=== PATIENT | female | born 2005 | race Caucasian/White ===

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

== ENCOUNTER 2024-02-21 13:44 | Outpatient (NON) | payer OTHER, SELFPAY ==
[2024-02-21 13:59] LABS: Bilirubin Urine Negative (Negative); Blood Urine Negative (Negative); Color Urine Light Yellow (Yellow); Glucose Urine UA Negative (Negative); Ketones Urine Negative (Negative); Leukocyte Esterase Ur 1+ LEU/UL (Negative); Nitrate Urine Negative (Negative); Protein Urine Negative (Negative); Specific Grav Ur 1.015 (1.010-1.020); Urobilinogen Urine 0.2 mg/dL (0.2-1.0)
[2024-02-21 16:01] LABS: Add Urine Microscopic? YES; Appearance Urine Cloudy (Clear); Bacteria Urine 4+ /hpf; RBC Urine None seen /hpf (0-2); Squamous Epithelial Cell Urine Few /hpf (Few)
== END 2024-02-21 13:45 | disposition home or self-care (01) ==
LOC: CHSLAB 13:46
PROVIDERS: Visit Provider Nurse Practitioner Family
DX: Z87.898 Personal history of other specified conditions (principal)
CPT/HCPCS: 81001; 87077; 87086; 87088; 87186

== ENCOUNTER 2024-02-24 13:04 | Emergency (ER) | payer OTHER, SELFPAY ==
--- NOTE | ~2024-02-24 | CT_ITS ---
EXAMINATION: CT abdomen pelvis w con DATE: 02/24/2024 14:29 INDICATION: Low back pain and pelvic pain. Recurrent urinary tract infection. TECHNIQUE: Computed tomography (CT) of the abdomen and pelvis was performed with 100 mL Omnipaque-350 intravenous contrast. Automated exposure control and iterative reconstruction technique were employe d. The dose-length product was 591.81 mGy-cm. COMPARISON: 09/09/2023 FINDINGS: Lung bases are clear. Heart size is normal. No pericardial or pleural effusion. Small focus of focal hepatic steatosis at the ligamentum teres. Liver, gallbladder, spleen, pancreas, bilateral adrenal gl ands and kidneys are normal. Bowels including the appendix are normal. Bladder is normal. IUD in expe cted position within the uterus. Tampon within vaginal vault. Multiloculated appearing likely serpigi nous tubular cystic structure extending posterior to the uterus from the left the right adnexa most c onsistent with bilateral hydrosalpinges. Bilateral adnexa are otherwise unremarkable. No free intrape ritoneal gas or fluid. No pathologically enlarged abdominal or pelvic lymphadenopathy. Transitional t horacolumbar segment with bilateral hypoplastic riblets and transitional bilaterally sacralized lumbo sacral segment. IMPRESSION: 1. Complex cystic structure from the left and right adnexal regions and across the cul-de-sac likely representing bilateral hydrosalpinges. Differential would include multiple bilateral ovarian cysts ar e complex septated cysts without discrete nodularity which would favor cystadenoma over cystadenocarc inoma. 2. IUD in expected position. Reviewed, dictated and finalized at location A. IMPRESSION: 1. Complex cystic structure from the left and right adnexal regions and across the cul-de-sac likely representing bilateral hydrosalpinges. Differential would include multiple bilateral ovarian cysts are complex septated cysts without di screte nodularity which would favor cystadenoma over cystadenocarcinoma. 2. IUD in expected position.
[2024-02-24 13:05] VITALS: BP 118/66; PULSE 83; RESP 14; TEMP 36.6; O2SAT 99
--- NOTE | 2024-02-24 13:13 | ECG_ITS ---
SEE SCANNED COPY FOR CONFIRMED REPORT MTDD
[2024-02-24 13:34] LABS: Basophils Absolute Auto 0.03 K/mm3 (0.00-0.10); Basophils Percent Auto 0.5 % (0.0-1.0); Eosinophils Absolute Auto 0.09 K/mm3 (0.02-0.50); Eosinophils Percent Auto 1.4 % (1.0-6.0); Hematocrit 42.7 % (35.0-49.0); Hemoglobin 13.9 g/dL (12.0-15.0); Immature Granulocyte Absolute 0.02 K/mm3 (0.00-0.00); Immature Granulocyte Percent A 0.3 % (0.0-0.0); Lymphocytes Absolute Auto 1.59 K/mm3 (1.10-4.50); Lymphocytes Percent Auto 24.8 % (18.0-42.0); Mean Corpuscular HGB Conc 32.6 g/dL (32-36); Mean Platelet Volume 8.4 fl (9.2-11.8); Monocytes Percent Auto 6.2 % (2.0-11.0); Neutrophils Absolute Auto 4.29 K/mm3 (1.70-7.20); Neutrophils Percent Auto 66.8 % (50.0-70.0); Platelet Count Result 254 K/mm3 (150-420); Red Blood Count 4.64 M/mm3 (4.20-5.40); Red Cell Distribution Width 12.3 % (11.6-14.4); White Blood Count 6.4 K/mm3 (4.8-10.8)
[2024-02-24] MEDS: SODIUM CHLORIDE 0.9% IV 1,000 ML 999 ML IV CONT (13:38)
[2024-02-24] MEDS: KETOROLAC 30 MG/ML VIAL (*BKC) IV PUSH (13:39)
[2024-02-24 13:48] LABS: Partial Thromboplastin Time 27.1 Sec (23.9-30.70); Prothrombin Time 10.9 Seconds (9.50-12.1)
[2024-02-24 13:51] LABS: Appearance Urine Clear (Clear); Bilirubin Urine Negative (Negative); Blood Urine Negative (Negative); Color Urine Yellow (Yellow); Glucose Urine UA Negative (Negative); Ketones Urine Negative (Negative); Leukocyte Esterase Ur Negative LEU/UL (Negative); Nitrate Urine Negative (Negative); Protein Urine Negative (Negative); Specific Grav Ur 1.015 (1.010-1.020); Urobilinogen Urine 0.2 mg/dL (0.2-1.0)
[2024-02-24 13:51] LABS: Pregnancy On Board Control Positive; Urine Pregnancy Test Negative
[2024-02-24 13:55] LABS: Add Urine Microscopic? NO
[2024-02-24 13:59] LABS: Alanine Aminotransferase 22 U/L (14-59); Albumin Level 3.8 g/dL (3.4-5.0); Alkaline Phosphatase 56 U/L (50-130); Anion Gap 8 mmol/L (4-12); Aspartate Amino Transferase 14 U/L (15-37); Bilirubin,Total 0.6 mg/dL (0.00-1.00); Blood Urea Nitrogen 12 mg/dL (7-18); Carbon Dioxide 30 mmol/L (21-32); Chloride 103 mmol/L (98-108); Estimated CRCL calculation 103 ml/min; Estimated Glomerular Filt Rate > 60; Glucose 85 mg/dL (70-99); Lipase 35 U/L (16-77); Osmolality Calculated 290 mOsm/kg (285-295); Potassium 3.8 mmol/L (3.5-5.1); Sodium 141 mmol/L (136-145); Total Protein 7.3 g/dL (6.4-8.2)
[2024-02-24 14:02] LABS: Lactic Acid Reflex 0.7 mmol/L (0.4-2.0)
[2024-02-24 14:14] VITALS: BP 117/63; PULSE 75; RESP 16; TEMP 36.6; O2SAT 99
--- NOTE | 2024-02-24 14:51 | ED.ABDPAIN ---
HPI - Abdominal Pain General Chief Complaint: Abdominal Pain Stated Complaint: vanna flank pain, recent uti, abt Source: patient and family Mode of arrival: ambulatory Limitations: no limitations History of Present Illness HPI narrative: This is a 18 year female who presents with abdominal pain localized to suprapubic area was seen by her primary and was treated for urinary tract infection with symptoms persist currently patient does have an IUD in place there is some flank discomfort with no fever chills no nausea vomiting no dysuria no hematuria no fever chills. MD elicited complaint: abdominal pain Onset (ago): week(s) Pain Consistency: constant Location: suprapubic Severity: moderate Quality: aching Related Data Home Medications Medication Instructions Recorded Confirmed levonorgestrel 21 mcg/24 hr (up to 1 device intrauterine ONCE 12/09/22 02/24/24 8 years) 52 mg intrauterine device (Mirena) Allergies Allergy/AdvReac Type Severity Reaction Status Date / Time No Known Drug Allergies Allergy Mild Unknown Verified 02/24/24 13:10 Review of Systems Review of Systems: All systems reviewed & are unremarkable except as noted in HPI and below PMFSH Past Medical History Medical History Pharyngitis Sjogren's disease TIN (tubulointerstitial nephritis) Surgical History Surgical History History of adenoidectomy History of tonsillectomy Social History Social History Smoking status: Never smoker Alcohol intake: never Substance use: never Substance use type: does not use Lack of Transportation: No Lack of Food: Never True Current Housing: I Have Housing Concerned About Future Housing: No Difficulty Paying Gas/Electric Bills: No Difficulty Paying for Meds: No Currently Unemployed: No Education: High School Diploma/GED Living arrangements: with family Occupation/Education: student Gender identity (if verbalized by the patient): Female Exam Const: General: healthy appearing, no acute distress and alert Neck: Neck: normal visual inspection, no lymphadenopathy and no meningeal signs Chest: Chest palpation & inspection: normal inspection of the chest Resp: Effort & Inspection: normal respiratory effort Auscultation: clear to auscultation bilaterally Cardio: Rate: regular rate Rhythm: regular rhythm GI: GI Palp: Yes Soft to palpation and Yes Tenderness to palpation present (GI) Auscultation: normal bowel sounds : General: Yes Bladder palpation abnormal Urinary Catheter: Urinary Catheter: patent and draining Back/Spine/Pelvis: Back: CVA tenderness Skin: General skin exam: normal color Rashes: no rashes Neuro: General: patient oriented x3 Cranial nerves: Yes Nystagmus not present Extrem: General: normal to inspection Psych: Mental Status: mental status grossly normal Course Course Emergency Course: Patient received bolus of normal saline with 30mg IV Toradol pain level after reassessment has significantly improved labs performed including UA were within normal range normal white blood cell count. CT scan with contrast performed does show has that there is cystic lesions consistent with cyst adenomas and hydrosalpinx. Advised patient to follow-up with her business data analyst as scheduled. Vital Signs Vital signs: Vital Signs Temperature 36.6 C 02/24/24 13:05 Pulse Rate 83 02/24/24 13:05 Respiratory Rate 14 02/24/24 13:05 Blood Pressure 118/66 02/24/24 13:05 Pulse Oximetry 99 02/24/24 13:05 Oxygen Delivery Room Air 02/24/24 13:05 Temperature 36.6 C 02/24/24 14:14 Pulse Rate 75 02/24/24 14:14 Respiratory Rate 16 02/24/24 14:14 Blood Pressure 117/63 02/24/24 14:14 Pulse Oximetry 99 02/24/24 14:14 Oxygen Delivery Room Air 02/24/24 14:14 MDM - Abdomina
[2024-02-24 15:03] VITALS: BP 118/66; PULSE 83; RESP 14; TEMP 36.6; O2SAT 99
== END 2024-02-24 15:03 | disposition home or self-care (01) ==
PROVIDERS: Emergency Provider Emergency Medicine; PCP Nurse Practitioner Family
DX: N83.209 Unspecified ovarian cyst, unspecified side (principal); R10.9 Unspecified abdominal pain; M35.00 Sjogren syndrome, unspecified
CPT/HCPCS: 36415; 74177; 80053; 81003; 81025; 83605; 83690; 85025; 85610; 85730; 93005; 96361; 96374; 99284; J1885; J7030; Q9967

== ENCOUNTER 2024-03-29 11:13 | Outpatient (CLI) | payer OTHER, SELFPAY ==
[2024-03-30 13:32] LABS: CA-125 146 U/mL (<35)
== END 2024-03-29 11:14 | disposition home or self-care (01) ==
PROVIDERS: PCP Nurse Practitioner Family; Visit Provider Nurse Practitioner Obstetrics & Gynecology
DX: N94.89 Other specified conditions associated with female genital organs and menstrual cycle (principal)
CPT/HCPCS: 36415; 80069; 85025; 86304

== ENCOUNTER 2024-03-29 11:17 | Outpatient (CLI) | payer OTHER, SELFPAY ==
[2024-03-29 11:46] LABS: Basophils Absolute Auto 0.1 K/mm3 (0.0-0.1); Basophils Percent Auto 0.8 % (0.2-1.2); Eosinophils Absolute Auto 0.1 K/mm3 (0-0.3); Eosinophils Percent Auto 1.9 % (0-4.4); Hemoglobin 14.6 g/dL (12.0-15.0); Immature Granulocyte Absolute 0.01 K/mm3 (0.00-0.031); Immature Granulocyte Percent A 0.2 % (0-0.5); Lymphocytes Absolute Auto 2.15 K/mm3 (0.9-3.2); Lymphocytes Percent Auto 33.5 % (18.3-44.2); Mean Corpuscular HGB Conc 32.4 g/dl (32-36); Mean Corpuscular Hemoglobin 30.5 pg (26-34); Mean Corpuscular Volume 94.1 fl (80-100); Mean Platelet Volume 8.3 fl (7.4-10.4); Monocytes Absolute Auto 0.4 K/mm3 (0.1-0.6); Monocytes Percent Auto 6.7 % (2.6-8.5); Neutrophils Absolute Auto 3.7 K/mm3 (1.3-6.7); Neutrophils Percent Auto 56.9 % (45.5-73.1); Platelet Count Result 326 k/mm3 (150-375); Red Blood Count 4.78 M/mm3 (4.2-5.4); Red Cell Distribution Width 12.6 % (11.5-14.5); White Blood Count 6.4 K/mm3 (4.5-10.0)
[2024-03-29 11:59] LABS: Anion Gap 8 mmol/L (4-12); Blood Urea Nitrogen 12 mg/dL (8-21); Calcium 9.9 mg/dL (8.9-10.7); Carbon Dioxide 29 mmol/L (22-30); Chloride 105 mmol/L (98-107); Estimated Glomerular Filt Rate > 60; Glucose 70 mg/dL (65-110); Phosphorus 3.9 mg/dL (2.5-4.5); Potassium 4.1 mmol/L (3.4-5.0); Sodium 142 mmol/L (134-143)
== END 2024-03-29 11:18 | disposition home or self-care (01) ==
PROVIDERS: PCP Nurse Practitioner Family
DX: H20.9 Unspecified iridocyclitis (principal); N12 Tubulo-interstitial nephritis, not specified as acute or chronic; M25.50 Pain in unspecified joint
CPT/HCPCS: 36415; 80069; 85025

== ENCOUNTER 2024-03-31 14:28 | Outpatient (CLI) | payer OTHER, SELFPAY ==
--- NOTE | ~2024-03-31 | US_ITS ---
EXAMINATION: US transvaginal DATE: 03/31/2024 15:20 INDICATION: Pelvic pain, right greater than left. Abnormal CT . TECHNIQUE: Multiple transabdominal and endovaginal sonographic images of the pelvis were obtained. COMPARISON: None. FINDINGS: The uterus measures 7.5 x 4.2 x 4.1 cm. The endometrial complex measures 5 mm in thickness. Linear e chogenic and shadowing IUD seen within the endometrial canal. Again seen is a large complex multisept ated cystic structure and in the left and right adnexal regions in the cul-de-sac with thin internal septations and hypoechoic fluid. Normal ovaries are not identified. There is no free fluid in the pel vis. IMPRESSION: 1. Large complex multi septated cystic structure extending grossly cul-de-sac from the left to the ri ght adnexal regions. Normal ovaries are not identified and the differential remains hydrosalpinx is, multiple independent ovarian cysts or complex septated cyst which can be seen with ovarian neoplasm e ither benign or malignant. 2. Normal uterus with IUD in expected position. Reviewed, dictated and finalized at location A. IMPRESSION: 1. Large complex multi septated cystic structure extending grossly cul-de-sac f rom the left to the right adnexal regions. Normal ovaries are not identified an d the differential remains hydrosalpinx is, multiple independent ovarian cysts or complex septated cyst which can be seen with ovarian neoplasm either benign or malignant. 2. Normal uterus with IUD in expected position.
== END 2024-03-31 14:29 | disposition home or self-care (01) ==
LOC: CHSIMG 14:30
PROVIDERS: PCP Nurse Practitioner Family; Visit Provider Nurse Practitioner Obstetrics & Gynecology
DX: N94.89 Other specified conditions associated with female genital organs and menstrual cycle (principal); Z97.5 Presence of (intrauterine) contraceptive device
CPT/HCPCS: 76830

== ENCOUNTER 2024-04-09 00:01 | Emergency (ER) | payer OTHER, SELFPAY ==
[2024-04-09 00:05] VITALS: BP 124/94; PULSE 81; RESP 18; TEMP 36.3; O2SAT 100
== END 2024-04-09 00:10 | disposition left against medical advice (07) ==
LOC: CHSED 00:12
PROVIDERS: Emergency Provider Emergency Medicine; PCP Nurse Practitioner Family
DX: R10.30 Lower abdominal pain, unspecified (principal)
CPT/HCPCS: 99199

== ENCOUNTER 2024-04-14 11:57 | Outpatient (CLI) | payer OTHER, SELFPAY ==
[2024-04-14 12:23] LABS: Hematocrit 42.8 % (35.0-49.0); Hemoglobin 14.5 g/dL (12.0-15.0); Mean Corpuscular HGB Conc 33.9 g/dL (32-36); Mean Corpuscular Hemoglobin 30.8 pg (27.0-31.0); Mean Corpuscular Volume 90.9 fL (78.0-102.0); Mean Platelet Volume 8.4 fl (9.2-11.8); Platelet Count Result 281 K/mm3 (150-420); Red Blood Count 4.71 M/mm3 (4.20-5.40); Red Cell Distribution Width 12.2 % (11.6-14.4); White Blood Count 5.6 K/mm3 (4.8-10.8)
[2024-04-14 12:34] LABS: Hemoglobin A1C 4.9 % (<5.7)
[2024-04-14 13:40] LABS: Alanine Aminotransferase 154 U/L (14-59); Albumin Level 4.2 g/dL (3.4-5.0); Alkaline Phosphatase 57 U/L (50-130); Anion Gap 9 mmol/L (4-12); Aspartate Amino Transferase 106 U/L (15-37); Bilirubin,Total 0.8 mg/dL (0.00-1.00); Blood Urea Nitrogen 9 mg/dL (7-18); Calcium 9.4 mg/dL (8.5-10.1); Carbon Dioxide 26 mmol/L (21-32); Chloride 104 mmol/L (98-108); Cholesterol 140 mg/dL (0-200); Estimated Glomerular Filt Rate > 60; Glucose 74 mg/dL (70-99); HDL Direct 58 mg/dL (40-60); LDL Cholesterol Calculated 76 mg/dL (<130); Osmolality Calculated 285 mOsm/kg (285-295); Potassium 4.1 mmol/L (3.5-5.1); Sodium 139 mmol/L (136-145); Thyroid Stimulating Hormone 2.84 uIU/mL (0.52-4.13); Triglycerides 28 mg/dL (0-150)
== END 2024-04-14 11:58 | disposition home or self-care (01) ==
LOC: CHSLAB 12:00
PROVIDERS: PCP Nurse Practitioner Family
DX: Z79.899 Other long term (current) drug therapy (principal)
CPT/HCPCS: 36415; 80053; 80061; 83036; 84443; 85027

== ENCOUNTER 2024-04-14 15:18 | Emergency (ER) | payer OTHER, SELFPAY ==
[2024-04-14 15:20] VITALS: BP 112/68; PULSE 85; RESP 18; TEMP 36.4; O2SAT 97
--- NOTE | 2024-04-14 15:20 | ED.GENADULT ---
HPI - General Adult General Chief complaint: Nausea/Vomiting/Diarrhea Stated complaint: sick to ab. Time Seen by Provider: 04/14/24 15:20 History of Present Illness HPI narrative: Patient is a 18 year old female with history of TIN, sjogrens, migraines here for nausea and vomiting. Patient notes that she has been undergoing numerous workups for ongoing pelvic and abdominal pain over the last month. She notes that most recently, she was seen at [facility] ED, started on doxycycline and flagyl for suspected PID. She went to her OBGYN yesterday where they removed her IUD and advised her to follow with the [facility]. They also started her on Vicodin for pain. She states that since starting her antibiotics earlier this week she has had continued nausea, vomiting and difficulty keeping food down. She also has experienced some dizziness. She does state that her gonorrhea, chlamydia and trichomonas testing were negative. Since arrival to the ER, her OBGYN has called her back and advised her to discontinue the flagyl as this could be causing her symptoms. She notes her abdominal change has been unchanged and constant for the last month, mainly located in her pelvis but does have some throughout. She does believe she has started having some increased urinary frequency when initiating her medications. She denies fever or chills. She did have lab work drawn outpatient today via her psychiatrist. No diarrhea, no vaginal discharge. No prior abdominal surgeries. Related Data Home Medications Medication Instructions Recorded Confirmed doxycycline hyclate 100 mg capsule 100 mg PO DAILY 04/13/24 04/14/24 metronidazole 375 mg capsule 375 mg PO Q12H 04/13/24 04/14/24 (Flagyl) propranolol 20 mg tablet 20 mg PO Q12H 04/13/24 04/14/24 Allergies Allergy/AdvReac Type Severity Reaction Status Date / Time No Known Drug Allergies Allergy Mild Unknown Verified 04/13/24 14:44 Review of Systems Review of Systems: All systems reviewed & are unremarkable except as noted in HPI and below PMFSH Past Medical History Medical History Pharyngitis Sjogren's disease TIN (tubulointerstitial nephritis) Surgical History Surgical History History of adenoidectomy History of tonsillectomy Social History Social History Smoking status: Never smoker Alcohol intake: never Substance use: never Substance use type: does not use Lack of Transportation: No Lack of Food: Never True Current Housing: I Have Housing Concerned About Future Housing: No Difficulty Paying Gas/Electric Bills: No Difficulty Paying for Meds: No Currently Unemployed: No Education: High School Diploma/GED Living arrangements: with family Occupation/Education: student Gender identity (if verbalized by the patient): Female Exam Narrative: GENERAL: Well-appearing, well-nourished, and in no acute distress. HEAD: Normocephalic, atraumatic. EYES: PERRLA and EOMI. ENT: Nares clear. Mucous membranes moist. NECK: Supple. CHEST: Clear to auscultation. No respiratory distress. HEART: Regular rate and rhythm. Normal peripheral pulses. ABDOMEN: Soft, diffuse abdominal tenderness worst in the epigastrium as well as in the bilateral adnexal and suprapubic region. No rebound or guarding, nondistended. EXTREMITIES: Normal range of motion. No edema. SKIN: Warm, dry, no rash. NEURO: No focal deficits. Alert and oriented x3. PSYCH: Normal mood and affect. Course Course Emergency Course: Chart review performed. Patient had an ED visit at [facility] on 04/11/24 for abdominal and pelvic pain. Recent workup includes: - 02/24/24 CT A/P with contrast showed complex cystic structure from the left and right adnexal regions across the cul-de-sac with IUD in place. - 03/29/24 CA 125 elevated at 146 - 04/01/24 Pelvic US showe
[2024-04-14 16:08] LABS: Appearance Urine Clear (Clear); Bilirubin Urine Negative (Negative); Blood Urine Trace-intact (Negative); Color Urine Light Yellow (Yellow); Glucose Urine UA Negative (Negative); Ketones Urine Negative (Negative); Leukocyte Esterase Ur Negative LEU/UL (Negative); Nitrate Urine Negative (Negative); Protein Urine Negative (Negative); Specific Grav Ur <= 1.005 (1.010-1.020); Urobilinogen Urine 0.2 mg/dL (0.2-1.0)
[2024-04-14] MEDS: ONDANSETRON HCL ODT 4 MG TABLET PO (16:09)
[2024-04-14 16:12] LABS: Add Urine Microscopic? YES; Bacteria Urine Trace /hpf; RBC Urine 0-2 /hpf (0-2); Squamous Epithelial Cell Urine Few /hpf (Few); WBC Urine None seen /hpf (0-3)
[2024-04-14 16:57] VITALS: BP 114/76; PULSE 75; RESP 20; TEMP 36.6; O2SAT 100
== END 2024-04-14 16:57 | disposition home or self-care (01) ==
PROVIDERS: Emergency Provider Student in an Organized Health Care Education/Training Program; PCP Nurse Practitioner Family
DX: R11.2 Nausea with vomiting, unspecified (principal); R10.84 Generalized abdominal pain; T50.905A Adverse effect of unspecified drugs, medicaments and biological substances, initial encounter
CPT/HCPCS: 81001; 99283; A9270

== ENCOUNTER 2024-04-20 12:53 | Outpatient (CLI) | payer OTHER, SELFPAY ==
[2024-04-20 13:53] LABS: Alanine Aminotransferase 95 U/L (14-59); Albumin Level 4.1 g/dL (3.4-5.0); Alkaline Phosphatase 56 U/L (50-130); Aspartate Amino Transferase 38 U/L (15-37); Bilirubin Direct 0.1 mg/dL (0-0.2); Bilirubin,Total 0.3 mg/dL (0.00-1.00); Total Protein 6.9 g/dL (6.4-8.2)
[2024-04-22 06:54] LABS: CA-125 58 U/mL (<35)
== END 2024-04-20 12:54 | disposition home or self-care (01) ==
LOC: CHSLAB 12:54
PROVIDERS: PCP Nurse Practitioner Family; Visit Provider Obstetrics & Gynecology
DX: R79.89 Other specified abnormal findings of blood chemistry (principal); N94.89 Other specified conditions associated with female genital organs and menstrual cycle
CPT/HCPCS: 36415; 80076; 86304

== ENCOUNTER 2024-04-24 07:23 | Outpatient (CLI) | payer OTHER, SELFPAY ==
--- NOTE | ~2024-04-24 | US_ITS ---
US pelvic complete w TV Ordering provider: Reece Viera MD History: . N94.89 - Other specified conditions associated with femal... . Comparison: None. Technique: Transabdominal and endovaginal ultrasound of the pelvis (Doppler ultrasound interrogation techniques used as needed for this exam.) FINDINGS: CERVIX: Normal. UTERUS: Measures 7.3x 4.6x 3.3 cm in length which is within normal limits and is anteverted. No myom etrial masses. ENDOMETRIUM: Normal in thickness measuring 11.5 mm. CUL DE SAC: Minimal free fluid. ADNEXA: Right adnexal cystic mass with septations measuring 4.8x 3.5x 3.3 cm.Internal echoes is seen which ma y indicate endometriomas or hemorrhagic cysts. Complex cystic area with septations seen measuring 6.7 x 5 x 4.1 cm in the left adnexa. Internal echo es is seen which may indicate endometriomas or hemorrhagic cysts. IMPRESSION: Otherwise, normal pelvic ultrasound. Reviewed, dictated and finalized at location A.
== END 2024-04-24 07:24 | disposition home or self-care (01) ==
LOC: CHSIMG 07:24
PROVIDERS: PCP Nurse Practitioner Family; Visit Provider Obstetrics & Gynecology
DX: N94.89 Other specified conditions associated with female genital organs and menstrual cycle (principal)
CPT/HCPCS: 76830; 76856

== ENCOUNTER 2025-01-04 13:35 | Outpatient (CLI) | payer OTHER, SELFPAY ==
--- OUTSIDE RECORDS SUMMARY | 2025-01-04 14:00 | XMS_ITS | Clinical Summary ---
Author Organization [facility] Address [address] [place] [address] Care Team Providers Care Base Filler Name Role Phone James Rankin Primary Care Provider Allergies No known active allergies Medications traMADoL (ULTRAM) 50 mg tablet Take 1 tablet (50 mg total) by mouth every 6 (six) hours 20 tablet 024 Active Additional Information Patient taking differently:50 mg oral Every 6 hours,Indications: Pain, Informant: Self, Reported on 12/22/2024 norethindrone (AYGESTIN) 5 mg tablet Take 1 tablet (5 mg total) by mouth daily 30 tablet 11 024 2024 Active Additional Information Patient taking differently:5 mg oralNightly, Indications: Endometriosis, Informant: Self, Reported on 12/22/2024 dextroamphetamine -amphetamine (ADDERALL) 5 mg tabletIndications :Attention-Defici t Hyperactivity Disorder Take 1 tablet (5 mg total) by mouth every morning 0 025 Active LORazepam (ATIVAN) 0.5 mg tabletIndications :anxiety Take 1 tablet (0.5 mg total) by mouth every 6 (six) hours as needed for anxiety 0 025 Active FLUoxetine (PROzac) 40 mg capsuleIndication s:depression Take 1 capsule (40 mg total) by mouth every morning Active APPLE CIDER VINEGAR ORALIndications:s upplement Take 450 mg by mouth every morning Active ASHWAGANDHA EXTRACT ORALIndications:s upplement Take 1,300 mg by mouth every morning Active melatonin tabletIndications :sleep Take 1 tablet (3 mg total) by mouth nightly Active TIRZEPATIDE SUBQIndications:w eight loss Inject 0.5 mg under the skin once a week Wednesdays Active busPIRone (BUSPAR) 7.5 mg tabletIndications :Generalized Anxiety Disorder Take 0.5 tablets (3.75 mg total) by mouth 2 (two) times a day Active ondansetron ODT (ZOFRAN-ODT) 4 mg disintegrating tabletIndications :N/V Take 1 tablet (4 mg total) by mouth every 8 (eight) hours as needed for vomiting or nausea for nausea or vomiting 20 tablet 025 Active acetaminophen (TYLENOL) 500 mg tablet Take 1 tablet (500 mg total) by mouth every 6 (six) hours as needed for pain 60 tablet 025 Active oxyCODONE (ROXICODONE) 5 mg immediate release tabletIndications :Pain Take 1 tablet (5 mg total) by mouth every 4 (four) hours as needed for pain 15 tablet 025 Active polyethylene glycol (MIRALAX) 17 gram/dose bulk powder Take 17 g by mouth daily 510 g 025 Active gabapentin (NEURONTIN) 300 mg capsule Take 1 capsule (300 mg total) by mouth 3 (three) times a day 90 capsule 11 025 2025 Active methocarbamoL (ROBAXIN) 750 mg tablet Take 2 tablets (1,500 mg total) by mouth 3 (three) times a day as needed for muscle spasms 30 tablet 025 Active acetaminophen (TYLENOL) 500 mg tablet Take 2 tablets (1,000 mg total) by mouth every 6 (six) hours as needed for pain 2024 Discontinued(A lternate therapy) ondansetron ODT (ZOFRAN-ODT) 4 mg disintegrating tabletIndications :N/V Take 1 tablet (4 mg total) by mouth every 8 (eight) hours as needed for nausea or vomiting 024 2024 Discontinued acetaminophen ER (TYLENOL) 650 mg 8 hr tabletIndications :Dysmenorrhea,Osvaldo n Take 1 tablet (650 mg total) by mouth every morning 2024 Discontinued(S top Taking at Discharge) ibuprofen (ADVIL,MOTRIN) 600 mg tablet Take 1 tablet (600 mg total) by mouth every 6 (six) hours as needed for pain 60 tablet 025 2024 Discontinued(S top Taking at Discharge) Active Problems Problem Noted Date Diagnosed Date Endometriosis 10/11/2024 Chronic pelvic pain in female 10/11/2024 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 3rd Floor [address] [place] [address] Cyril Tafoya 12/29/[address] [address] Jamaal Baldwin MD 12/25/[address] [address] Jamaal Baldwin MD 12/22/2024 7:30 AM CDT - 12/22/2024 11:35 AM CDT Surgery [facility] [address] [place] [address] Virginie Gaffney MD LAPAROSCOPIC EXCISION ENDOMETRIOSIS 12/22/2024 7:24 AM CDT Anesthesia Event [facility] [address] [place] [address] Paul Matthew MD Richardson, Genea Michelle, NP 12/22/2024 5:01 AM CDT - 12/22/2024 3:16 PM CDT Hospital Encounter [facility] [address] [place] [address] Virginie aGffney MD Endometriosis; Chronic pelvic pain in female Discharge Disposition: Discharge to home or self care 12/15/2024 12:30 PM CDT Pre-Admission Testing [facility] for Preoperative Assessment and [facility] [address] [place] [phone] Preoperative testing (Primary Dx) 12/01/2024 Telephone [facility] [address] [facility] Outpatient [facility] 7th Floor [address] [place] [phone] Amy Marlow Surgery Auth Follow-up 11/15/2024 Telephone [facility]etrics [facility]ne[facility] Clinic [address] [facility] 3rd Floor [address] [place] [address] Cyril Tafoya 10/10/[address] [facility] [address] [place] [phone] Rocio Padilla MD from Last 3 Months Immunizations Immunization Administration Dates Next Due DTaP 01/10/2010, 6,06/15/2005,04/13/2005 ,02/11/2005 HPV9 12/09/2016,08/05/2016,05/13/2016 Hep A, Ped Unspecified 12/24/2006,04/15/2006 Hep B / HiB 12/24/2005,04/13/2005,02/11/2005 Hep B, Adolescent or Pediatric 2004 IPV 01/10/2010,07/08/2006,04/13/2005 ,02/11/2005 Influenza, Unspecified 08/22/2005 MMR 01/10/2010 MMRV 04/15/2006 Meningococcal Conjugate (Menveo) 01/27/2022 Meningococcal MCV4P (Menactra) 05/13/2016 Pneumococcal Conjugate 7-Valent 12/24/2005,06/15,04/13/2005,02/11/2005 Tdap 05/13/2016 Varicella 01/10/2010 Surgical History Surgery Date Site/Laterality Comments [place] TONSILLECTOMY & ADENOIDEC MARIA M <AGE 11 Tonsillectomy With Adenoidectomy - (Added by TW Conv) Medical History Medical History Date Comments Personal history of other sp ecified conditions History of vomiting - x1-2 p er month. x4-5 months. (Added by TW Conv) Uveitis Nephritis Family History Medical History Relation Name Comments Anemia Mother Anemia - (Added by TW Conv) Cervical cancer Mother Cervical Can cer - (Added by TW Conv) Hypertension Mother Hypertension - (Added by TW Conv) Migraines Mother Migraine Headac he - (Added by TW Conv) Asthma Other 1 Asthma - (Added by TW Conv) Heart disease Other 2 Heart Disease - (Added by TW Conv) Constipation Other 3 Constipation - (Added by TW Conv) Anesthesia problems Neg Hx Relation Name Status Comments Mother Other 1 Other 2 Other 3 Social History Tobacco Use Types Packs/Day Years Used Date Smoking Tobacco: Never Smokeless Tobacco: Never Tobacco Cessation:Counseling Given: Not Answered AUDIT-C Answer Date Recorded Q1: How often do you have a drink containing alcohol? Never 12/22/2024 Q2: How many drinks containi ng alcohol do you have on a typical day when you are drinking? Patient does not drink Q3: How often do you have si x or more drinks on one occasion? Never 12/22/2024 Hunger Vital Sign Answer Date Recorded Within the past 12 months, y ou worried that your food would run out before you got the money to buy more. Never true 09/06/20 24 Within the past 12 months, t he food you bought just didn't last and you didn't have money to get more. Never true 09/06/2024 Personal Safety Answer Date Recorded Have you ever been in or are you currently in a harmful physical or emotional relationship or is someone making you feel afraid or unsafe? Denies 12/22/2024 Comments No Sex and Gender Information Value Date Recorded Sex Assigned at Not on file Legal Sex Female 2:29 AM RESEARCHER Gender Identity Not on file Sexual Orientation Not on file Obstetrics History Para Term AB IAB SAB Ectopic Multiple Livin g Live Births 0 0 0 0 0 0 0 0 0 0 0 Last Filed Vital Signs Vital Sign Reading Time Taken Comments Blood Pressure 121/72 12/22/2024 1:38 PM CDT Pulse 111 12/22/2024 2:30 PM CDT Temperature 36.4 C (97.5 F) 12/22/2024 1:38 PM CDT Respiratory Rate 26 12/22/2024 2:30 PM CDT Oxygen Saturation 98% 12/22/2024 2:30 PM CDT Inhaled Oxygen Concentration - - Weight 99.8 kg (220 lb) 12/22/2024 6:09 AM CDT Height 167.6 cm (5' 6 ) 12/15/2024 12:35 PM CDT Body Mass Index 35.51 12/15/2024 12:35 PM CDT Plan of Treatment Health Maintenance Due Date Last Done Comments Depression Screening 2004 Hepatitis C Screening 2004 Meningococcal B Vaccine (1 o f 2 - Standard) 2020 Regular Well Visit/Exam 18-64 2022 Influenza Vaccine (Season Ended) 2025 01/12/20 24, 08/22/2005 DTaP/Tdap/Td Vaccine (7 - Td or Tdap) 05/13/2026 05/13/2016, 01/10/2010, 07/08/2006, Additional history exists Hepatitis B Screening Completed 12/24/2005 , 04/13/2005, 02/11/2005, Additional history exists Pneumococcal vaccine <65 Completed 006, 06/15/2005, 04/13/2005, Additional history exists Varicella Vaccines Completed 01/10/2010, 04/15/2006 HPV Vaccines Completed 12/09/2016, 11/2015, 05/13/2016 Meningococcal Vaccine Completed 01/27/2022, 016 Procedures Procedure Name Priority Date/Time Associated Diagnosis Comments SURGICAL PATHOLOGY Routine 12/22/2024 8: 23 AM CDT Endometriosis Chronic pelvic pain in female AZ AN PROCEDURE PLACEHOLDER Routine 12/22/2024 7:58 AM CDT AZ AN PROCEDURE PLACEHOLDER Routine 12/22/2024 7:55 AM CDT AZ AN ELECTIVE ENDOTRACHEAL AIRWAY Routine 12/22/2024 7:55 AM CDT LAPAROSCOPIC APPENDECTOMY 12/22/2024 7:28 AM CDT Endometriosis Chronic pelvic pain in female URETEROLYSIS 12/22/2024 7:28 AM CDT Endometriosis Chronic pelvic pain in female INSERTION/REMOVAL INTRAUTERINE DEVICE 12/22/2024 7:28 AM CDT Endometriosis Chronic pelvic pain in female PLACEMENT STENT - URETERAL 12/22/2024 7:28 AM CDT Endometriosis Chronic pelvic pain in female CYSTOSCOPY 12/22/2024 7:28 AM CDT Endometriosis Chronic pelvic pain in female LAPAROSCOPIC EXCISION - OVARIAN CYST 12/22/2024 7:28 AM CDT Endometriosis Chronic pelvic pain in female LAPAROSCOPIC EXCISION ENDOMETRIOSIS 12/22/2024 7:28 AM CDT Endometriosis Chronic pelvic pain in female POCT HCG, URINE Routine 12/22/2024 7:19 AM CDT POCT HCG, URINE Routine 12/22/2024 6:30 AM CDT EGFR Routine 12/15/2024 1:21 PM CDT Preoperative testing COMPREHENSIVE METABOLIC PANEL Routine 12/15/2024 1:21 PM CDT Preoperative testing CBC WITHOUT DIFFERENTIAL Routine 12/15/2024 1:21 PM CDT Preoperative testing from Last 3 Months Results * Surgical pathology (12/22/2024 8:23 AM CDT) Tissue specimen (specimen) (PeriTONEUM, resection non-tumor) 12/22/2024 8:23 AM CDT Tissue specimen (specimen) (Cyst, ovarian, non-neoplastic) 12/22/2024 8:43 AM CDT Tissue specimen (specimen) (PeriTONEUM, resection for tumor) 12/22/2024 9:21 AM CDT Tissue specimen (specimen) (Cyst, ovarian, non-neoplastic) 12/22/2024 9:36 AM CDT Tissue specimen (specimen) (PeriTONEUM, resection non-tumor) 12/22/2024 9:49 AM CDT Tissue specimen (specimen) (PeriTONEUM, resection non-tumor) 12/22/2024 9:55 AM CDT Tissue specimen (specimen) (Appendix) 12/22/2024 10:25 AM CDT Tissue specimen (specimen) (PeriTONEUM, resection non-tumor) 12/22/2024 10:37 AM CDT Narrative PATHOLOGY [facility] - 12/27/2024 12:02 PM CDT EPIC results best viewed via link to PDF [facility] Pallavi Ay[facility] [place] [address] Note to Patients: This report may contain a detailed description of human tissue sent by a health care provider to the laboratory for pathologic evaluation. The content of this report is essential for diagnosis and may provide important critical findings. This information may be unfamiliar to patients to review without a medical professional present. It is advised that the patient review this report in the presence of a health care provider who can answer questions and explain the details. SURGICAL PATHOLOGY REPORT FINAL Patient Name: KOBE WALKER Gender: F : 2005 (Age: 19) Address: [address] [place] [address] Hospital #: [id number] Taken:12/22/2024 Received:12/22/2024 Reported: 12/27/2024 Patient Type: [facility] Service: Surgery Location: [facility] OR POD[facility] Physician(s): LA Keating MD Kali M. Stewart Diagnosis: A. Peritoneum, right pelvic side wall, excision - Fibroadipose tissue with hemosiderin laden macrophages B. Ovary, left, cyst excision - Ovary with endometriosis C. Peritoneum, left pelvic side wall, excision - Endometriosis D. Ovary, right, cyst excision - Ovary with endometriosis E. Peritoneum, right uterosacral ligament, excision - Endometriosis F. Peritoneum, rectovaginal septum nodule, excision - Fibroadipose tissue with no histopathologic abnormality G. Appendix, appendectomy - Appendix with endometriosis H. Peritoneum, diaphragm, excision - Endometriosis jaro/12/26/2024 18:34 By this signature, I attest that the above diagnosis is based upon my personal examination of the slides(and/or other material indicated in the diagnosis). Adilene Baez MD Report Electronically Reviewed and Signed Out By Adilene Baez MD 12/27/2024 12:02:45 Corey Hall M.D. History: The patient is a 19-year-old woman with endometriosis and chronic pelvic pain in female. Operative procedure: Endometriosis excision, bilateral ovarian cyst excision, appendectomy, insertion/removal intrauterine device. Specimen(s) Received: A: Right pelvic sidewall peritoneum B: Left ovarian cyst C: Left pelvic sidewall peritoneum D: Right ovarian cyst E: Right uterosacral ligament F: Recto vaginal septum nodule G: Appendix H: Diaphragm Gross Description: Received in eight formalin jars labeled with the patient's identifiers. A. Labeled right pelvic sidewall peritoneum , are multiple pieces of thin, glistening purple-godoy tissue (4.0 x 4.0 x 0.5 cm in aggregate) with adipose tissue, dark purple congestion, and cautery. The larger pieces of tissue are serially sectioned. Information Technology Officer sections are submitted in cassette A1. Jar 1. B. Labeled left ovarian cyst , are two pieces of disrupted tissue (2.5 x 1.6 x 1.0 and 8.5 x 3.0 x 0.2 cm). The outer surface is purple-godoy and glistening with cautery and fraying. The inner surface is cooper and wrinkled with dark brown material. The pieces of tissue are serially sectioned with patient service representative sections submitted in cassette B1. Jar 1. C. Labeled left pelvic sidewall peritoneum , are two pieces of cauterized brown- purple tissue (1.0 x 0.4 x 0.4 and 3.0 x 1.5 x 0.7 cm). The pieces of tissue are entirely submitted intact in cassette C1. Jar 0. D. Labeled right ovarian cyst , is a sheet of thin, godoy-white tissue (4.0 x 2.5 x 0.2 cm) with dark brown discoloration and fraying. The tissue is serially sectioned and entirely submitted in cassette D1. Jar 0. E. Labeled right uterosacral ligament , are two pieces of cauterized pink-godoy and purple-brown tissue (0.7 x 0.7 x 0.2 and 1.5 x 0.7 x 0.7 cm). The pieces of tissue are entirely submitted intact in cassette E1. Jar 0. F. Labeled rectovaginal septum nodule , is a piece of cauterized cooper-brown tissue (1.1 x 0.8 x 0.6 cm). The tissue is entirely submitted intact in cassette F1. Jar 0. G. Labeled appendix , is an appendix (5.5 cm in length x 0.7 cm in diameter) with a staple margin and mesoappendix. The proximal margin is inked blue. The the serosa is purple-godoy and glistening with slight fraying but no gross perforation. The appendix is serially sectioned. The lumen has slight dilation (0.2 cm in diameter) with scant brown-green fecal material and no gross fecalith. The wall thickness is uniform in size (0.1 cm). Information Technology Officer sections are submitted in cassette G1 (proximal margin, en face; mid-appendix; bisected appendiceal tip). Jar 1. H. Labeled diaphragm , is a piece of cauterized cooper tissue (1.0 x 0.5 x 0.2 cm). The tissue is entirely submitted intact in cassette H1. Jar 0. behu12/25/2024 10:49 PA(s): Janelle Jain MS, PA(ASCP)CM By this signature, I attest that the above diagnosis is based upon my personal examination of the slides(and/or other material). Addenda/Procedures The performance characteristics of some immunohistochemical stains, fluorescence in-situ hybridization tests and immunophenotyping by flow cytometry cited in this report (if any) were determined by the Surgical Pathology and Flow Cytometry Departments at [facility] as part of an ongoing quality control lab technician program and in compliance with federally mandated regulations drawn from the Clinical Laboratory Improvement Act of 1988 (CLIA '88). Some of these tests rely on the use of analyte specific reagents and are subject to specific labeling requirements by the US Food and Drug Administration. Such diagnostic tests may only be performed in a facility that is certified by the Department of Health and Human Services as a high complexity laboratory under CLIA '88. The FDA has determined that such clearance or approval is not necessary. This test is used for clinical purposes. It should not be regarded as investigational or for research. Nevertheless, federal rules concerning the medical use of analyte specific reagents require that the following disclaimer be attached to the report: This test was developed and its performance characteristics determined by the Surgical Pathology and Flow Cytometry Departments of [facility]. It has not been cleared or approved by the U. S. Food and Drug Administration. IMAGES AND SCANNED DOCUMENTS, IF INCLUDED, ONLY VIEWABLE IN PDF VERSION OF REPORT us Virginie Gaffney MD LAB PATHOLOGY ORDERAB LES Final Result PATHOLOGY [facility] 3rd Floor [place], [place] [phone] * AZ AN PROCEDURE PLACEHOLDER (12/22/2024 7:58 AM CDT) Narrative Paul Matthew MD - 12/22/2024 7:58 AM CDT Paul Matthew MD 12/22/2024 7:59 AM Peripheral IV Catheter Patient location: OR Staff: Placed by: Anesthesiologist: Paul Matthew MD Preprocedure prep: Prep solution: chlorhexadine PPE: gloves and provider hat/mask PIV line: Laterality: right Site: wrist Catheter size: 20 g Technique: direct visualization and palpatation Procedure details: good blood return and occlusive dressing applied Number of attempts: 2 Other sites attempted: right hand Assessment: Events: patient tolerated procedure well with no complications us Paul Matthew MD ANESTHESIA ORDERABLES Amy l Result * AZ AN ELECTIVE ENDOTRACHEAL AIRWAY, AZ AN PROCEDURE PLACEHOLDER (12/22/2024 7:55 AM CDT) Narrative Paul Matthew MD - 12/22/2024 7:55 AM CDT Paul Matthew MD 12/22/2024 7:58 AM Airway Patient location: OR Urgency: elective Indications for airway management: anesthesia Difficult airway: no Staff: Supervising provider: Paul Matthew MD Placed by: Other staff: Salma Emerson RN Emergent airway documentation: Risks and benefits discussed: yes Consent obtained: yes Consent given by: patient Airway prep: Preoxygenated: yes Patient position: sniffing Mask difficulty assessment: 1 - vent by mask Spontaneous ventilation during airway: absent Sedation level during airway: GA Final airway details: Final airway type: endotracheal airway Tube type: ETT ETT size: 7.5 mm Cuffed: yes Technique used for successful ETT placement: video laryngoscopy Devices/Methods used in placement: stylet Insertion site: oral Blade type: Eun Video blade type: Hirsch Blade size: 3 Cormack-Lehane (video): grade I - full view of glottis Initial cuff pressure: 22 cm H2O Cuff volume: 6 mL Cuff inflated with: air ETT to teeth: 21 cm Placement verified by: auscultation and CO2 detection Airway secured with: silk tape Number of attempts: 1 Planned trial extubation: yes Paul Matthew MD ANESTHESIA ORDERABLES Amy l Result * POCT hCG, urine (12/22/2024 7:19 AM CDT) HCG, ur, POC Negative Negative Lot Number [id number] QC Backgroud Clear Acceptable QC Control Line Acceptable Urine 12/22/2024 7:19 AM CDT Virginie Gaffney MD POINT OF CARE TEST OR DERABLES Final Result * POCT hCG, urine (12/22/2024 6:30 AM CDT) HCG, ur, POC Negative Negative Lot Number [id number] QC Backgroud Clear Acceptable QC Control Line Acceptable Urine 12/22/2024 6:30 AM CDT Paul Matthew MD POINT OF CARE TEST ORDERAB LES Final Result * eGFR (12/15/2024 1:21 PM CDT) Pathologist [facility] eGFR >90 >=60 mL/min/1. 73 m2 Comment: Interpretive Data Reference Interval Normal >/= 90 mL/min/1.73m2 Mildly decreased* 60 - 89 mL/min/1.73m2 Mildly to moderately decreased 45 - 59 mL/min/1.73m2 Moderately to severely decreased 30 - 44 mL/min/1.73m2 Severely decreased 15 - 29 mL/min/1.73m2 Kidney Failure < 15 mL/min/1.73m2 *Relative to young adult level Estimated glomerular filtration rate is determined by the 2020 CKD-EPI equation recommended by the National Kidney Foundation (A Unifying Approach to GFR Estimation: Recommendations of the NKF-ASK Task Force on Reassessing the Inclusion of Race in Diagnosing Kidney Disease, JASN 2020). The CKD-EPI equation should not be used for patients with unstable renal function and has not been validated in children and those over 70. Current interpretive data was last reviewed 2021. Blood 12/15/2024 1:21 PM CDT 12/15/2024 2:10 PM CDT Pallavi Bales DIRECTOR OF RECRUITMENT LAB BLOOD ORDERABLES Final Result Performing Organization Address [facility]/ZIP Co de Phone Number [facility] Department [place] [place] [address] * (ABNORMAL) CBC without differential (12/15/2024 1:21 PM CDT) Pathologist [facility] WBC 6.9 3.8 - 9.9 K/cumm Hgb 14.2 11.9 - 15.5 g/dL [facility] Hct 43.1 35.6 - 45.5 % [facility] Plt 352 150 - 400 K/cumm [facility] MPV 8.7(L) 9.1 - 12.3 fL [facility] RBC 4.96 3.90 - 5.20 M/cumm [facility] MCV 86.9 81.3 - 96.4 fL [facility] MCH 28.6 27.1 - 33.3 pg [facility] MCHC 32.9 32.3 - 35.7 g/dL [facility] RDW CV 13.8 11.1 - 14.9 % [facility] RDW SD 43.8 35.7 - 48.1 fL [facility] NRBC abs 0.00 0.00 - 0.01 K/cumm [facility] Blood 12/15/2024 1:21 PM CDT 12/15/2024 2:27 PM CDT Pallavi Bales DIRECTOR OF RECRUITMENT LAB BLOOD ORDERABLES Final Result [facility] [place] [address] * Comprehensive metabolic panel (12/15/2024 1:21 PM CDT) Pathologist [facility] Sodium 138 135 - 145 mmol/L Potassium, pl 4.1 3.3 - 4.9 mmol/L [facility] Chloride 104 97 - 110 mmol/L [facility] CO2 27 22 - 32 mmol/L [facility] Anion gap 7 2 - 15 mmol/L [facility] BUN 11 6 - 25 mg/dL [facility] Creatinine 0.86 0.60 - 1.10 mg/dL [facility] Glucose 75 70 - 199 mg/dL [facility] Comment: Interpretive Data Fasting glucose >/= 126 mg/dl is diagnostic for diabetes. Fasting is defined as no caloric intake for at least 8 hours. Fasting glucose between 100 mg/dl to 125 mg/dl is diagnostic of prediabetes. In a patient with classic symptoms of hyperglycemia or hyperglycemic crisis, a random glucose >/= 200 mg/dl is diagnostic for diabetes. In the absence of unequivocal hyperglycemia, results should be confirmed by repeat testing. The classification and Diagnosis of Diabetes Diabetes Care 202; 46: S19-S40. Current interpretive data was last revised 2022. Calcium 9.8 8.5 - 10.3 mg/dL [facility] Bilirubin, total 0.5 0.1 - 1.2 mg/dL [facility] Protein, pl 7.8 6.5 - 8.5 g/dL [facility] Albumin 4.8 3.5 - 5.0 g/dL [facility] Alk phos 60 40 - 130 Units/L [facility] ALT 12 7 - 45 Units/L [facility] AST 18 10 - 45 Units/L [facility] Blood 12/15/2024 1:21 PM CDT 12/15/2024 2:10 PM CDT us Pallavi Bales NP LAB BLOOD ORDERABLES Final Result [facility] Department [place] [address] from Last 3 Months Insurance IDPA [facility] Care Teams Base Filler Relationship Specialty Start Date End Date James Rankin PA [address] [place] [address] PCP - General Physician Ship Harbor Pilot 12/12/24
--- OUTSIDE RECORDS SUMMARY | 2025-01-04 14:00 | XMS_ITS | Referral Summary ---
Author Organization [facility] Address 1 [place] [address] Care Team Providers Care Porcelain Enamel Repairer Name Role Phone James Rankin Primary Care Provider Encounters Date Type Department Care Team Description 01/02/2025 Telephone [facility] [address] [place] [address] Outpatient Health 3rd Floor [address] [place] [address] Veronika Rob NP 01/02/2025 Telephone Obstetrics and Gynecology Clinic [address] [facility] Outpatient [facility] 3rd Floor [address] [place] [phone] Cyril Tafoya 12/29/[address] [address] Jamaal Baldwin MD 12/25/[address] [address] Jamaal Baldwin MD 12/22/2024 7:30 AM CDT - 12/22/2024 11:35 AM CDT Surgery [facility] Operating Room 1 [place] [phone] Virginie Gaffney MD LAPAROSCOPIC EXCISION ENDOMETRIOSIS 12/22/2024 7:24 AM CDT Anesthesia Event [facility] Operating Room 1 [place] [phone] Paul Matthew MD Richardson, Genea Michelle, NP 12/22/2024 5:01 AM CDT - 12/22/2024 3:16 PM CDT Hospital Encounter [facility] Operating Room 1 [place] [address] Virginie Gaffney MD Endometriosis; Chronic pelvic pain in female Discharge Disposition: Discharge to home or self care 12/15/2024 12:30 PM CDT Pre-Admission Testing [facility] for Preoperative Assessment and Planning [facility] [address] [place] [address] Preoperative testing (Primary Dx) 12/01/2024 [facility] [address] [facility] 7th Floor [address] [place] [phone] Amy Marlow Surgery Auth Follow-up 11/15/2024 Telephone [facility] [address] [place] [address] 3rd Floor [address] [place] [phone] Cyril Tafoya 10/10/[address] [address] Rocio Padilla MD from Last 3 Months Allergies No known active allergies Medications traMADoL [...] antibody) 05/02/2020 Abdominal pain 10/09/2008 Hematochezia 10/09/2008 Immunizations Immunization Administration Dates Next Due DTaP 01/10/2010, 6,06/15/2005,04/13/2005 ,02/11/2005 HPV9 12/09/2016,08/05/2016,05/13/2016 Hep A, Ped Unspecified 12/24/2006,04/15/2006 Hep B / HiB 12/24/2005,04/13/2005,02/11/2005 Hep B, Adolescent or Pediatric 2004 IPV 01/10/2010,07/08/2006,04/13/2005 ,02/11/2005 Influenza, Unspecified 08/22/2005 MMR 01/10/2010 MMRV 04/15/2006 Meningococcal Conjugate (Menveo) 01/27/2022 Meningococcal MCV4P (Menactra) 05/13/2016 Pneumococcal Conjugate 7-Valent 12/24/2005,06/15,04/13/2005,02/11/2005 Tdap 05/13/2016 Varicella 01/10/2010 Social History Tobacco Use Types Packs/Day Years [...] on file 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 Gender Identity Not on file Sexual Orientation Not on file Last Filed Vital Signs Vital Sign Reading [...] 12/15/2024 12:35 PM CDT Plan of Treatment Not on file Procedures Procedure Name Priority Date/Time Associated Diagnosis Comments SURGICAL PATHOLOGY Routine 12/22/2024 8: 23 AM CDT Endometriosis Chronic pelvic pain in female IA AN PROCEDURE PLACEHOLDER Routine 12/22/2024 7:58 AM CDT IA AN PROCEDURE PLACEHOLDER Routine 12/22/2024 7:55 AM CDT IA AN ELECTIVE ENDOTRACHEAL AIRWAY Routine 12/22/2024 7:55 [...] non-tumor) 12/22/2024 10:37 AM CDT Narrative PATHOLOGY [facility] - 12/27/2024 12:02 PM CDT EPIC results best viewed via link to PDF [facility] Pallavi Ayala [facility] [place] [address] Note to Patients: This report may contain [...] Gender: F : 2005 (Age: 19) Address: [address] [place] [address] Hospital #: [id number] Taken:12/22/2024 Received:12/22/2024 Reported: 12/27/2024 Patient Type: [facility] Service: Surgery Location: [facility] OR [facility] Physician(s): LA Keating MD Kali M. Stewart [...] larger pieces of tissue are serially sectioned. Sap Architect sections are submitted in cassette A1. Jar 1. B. Labeled left ovarian cyst , are two pieces of disrupted tissue (2.5 x 1.6 x 1.0 and 8.5 x 3.0 x 0.2 cm). The outer surface is purple-godoy and glistening with cautery and fraying. The inner surface is cooper and wrinkled with dark brown material. The pieces of tissue are serially sectioned with territory account representative sections submitted in cassette B1. Jar [...] thickness is uniform in size (0.1 cm). Sap Architect sections are submitted in cassette G1 (proximal margin, en face; mid-appendix; bisected appendiceal tip). Jar 1. H. Labeled diaphragm , is a piece of cauterized cooper tissue (1.0 x 0.5 x 0.2 cm). The tissue is entirely submitted intact in cassette H1. Jar 0. behu/12/25/2024 10:49 PA(s): Janelle Jain MS, LA(ASCP)CM By this signature, I attest that the above diagnosis is based upon my personal examination of the slides(and/or other material). Addenda/Procedures The performance characteristics of some immunohistochemical stains, fluorescence in-situ hybridization tests and immunophenotyping by flow cytometry cited in this report (if any) were determined by the Surgical Pathology and Flow Cytometry Departments at [facility] as part of an ongoing engagement quality consultant program and in compliance with federally mandated [...] Surgical Pathology and Flow Cytometry Departments of [facility]. It has not been cleared or approved by the U. S. Food and Drug Administration. IMAGES AND SCANNED DOCUMENTS, IF INCLUDED, ONLY VIEWABLE IN PDF VERSION OF REPORT us Virginie Gaffney MD LAB PATHOLOGY ORDERAB LES Final Result PATHOLOGY [facility] 3rd Floor [place], [place] [phone] * IA AN PROCEDURE PLACEHOLDER (12/22/2024 7:58 AM CDT) Paul Clark MD - 12/22/2024 7:58 AM CDT Paul [...] MD ANESTHESIA ORDERABLES Amy l Result * IA AN ELECTIVE ENDOTRACHEAL AIRWAY, IA AN PROCEDURE PLACEHOLDER (12/22/2024 7:55 AM CDT) Paul Clark MD - 12/22/2024 7:55 AM CDT Paul [...] Line Acceptable Urine 12/22/2024 7:19 AM CDT Result [facility] Virginie Gaffney MD POINT OF CARE TEST OR DERABLES Final Result * POCT hCG, urine (12/22/2024 6:30 AM CDT) HCG, ur, POC Negative Negative Lot Number [id number] QC Backgroud Clear Acceptable QC Control Line Acceptable Urine 12/22/2024 6:30 AM CDT Result [facility] Paul Matthew MD POINT OF CARE TEST [...] of Race in Diagnosing Kidney Disease, JASN 202). The CKD-EPI equation should not be used for patients with unstable renal function and has not been validated in children and those over 70. Current interpretive data was last reviewed 2021. Blood 12/15/2024 1:21 PM CDT 12/15/2024 2:10 PM CDT Pallavi Bales INBOUND CUSTOMER SERVICE AGENT LAB BLOOD ORDERABLES Final Result [facility] Department [place] [address] * (ABNORMAL) CBC without differential (12/15/2024 1:21 PM CDT) WBC 6.9 3.8 - 9.9 K/cumm Hgb 14.2 11.9 - 15.5 g/dL [facility] Hct 43.1 35.6 - 45.5 % [facility] Plt 352 150 - 400 K/cumm [facility] MPV 8.7(L) 9.1 - 12.3 fL [facility] RBC 4.96 3.90 - 5.20 M/cumm [facility] MCV 86.9 81.3 - 96.4 fL [facility] MCH 28.6 27.1 - 33.3 pg [facility] MCHC 32.9 32.3 - 35.7 g/dL [facility] RDW CV 13.8 11.1 - 14.9 % [facility] RDW SD 43.8 35.7 - 48.1 fL [facility] NRBC abs 0.00 0.00 - 0.01 K/cumm [facility] Blood 12/15/2024 1:21 PM CDT 12/15/2024 2:27 PM CDT Pallavi Bales NP LAB BLOOD ORDERABLES Final Result [facility] Department [place] [address] * Comprehensive metabolic panel (12/15/2024 1:21 PM CDT) Sodium 138 135 - 145 mmol/L Potassium, pl 4.1 3.3 - 4.9 mmol/L [facility] Chloride 104 97 - 110 mmol/L [facility] CO2 27 22 - 32 mmol/L [facility] Anion gap 7 2 - 15 mmol/L [facility] BUN 11 6 - 25 mg/dL [facility] Creatinine 0.86 0.60 - 1.10 mg/dL [facility] Glucose 75 70 - 199 mg/dL [facility] Comment: Interpretive Data Fasting glucose >/= [...] 2022. Calcium 9.8 8.5 - 10.3 mg/dL [facility] Bilirubin, total 0.5 0.1 - 1.2 mg/dL [facility] Protein, pl 7.8 6.5 - 8.5 g/dL [facility] Albumin 4.8 3.5 - 5.0 g/dL [facility] Alk phos 60 40 - 130 Units/L [facility] ALT 12 7 - 45 Units/L [facility] AST 18 10 - 45 Units/L [facility] Blood 12/15/2024 1:21 PM CDT 12/15/2024 2:10 PM CDT us Pallavi Bales NP LAB BLOOD ORDERABLES Final Result [facility] Department [place] [address] from Last 3 Months Insurance [facility] [address] [address] Care Teams Porcelain Enamel Repairer Relationship Specialty Start Date End Date James Rankin PA [address] [place] [address] PCP - General Physician Labor Relations Specialist 12/12/24
[2025-01-04 15:33] LABS: Alanine Aminotransferase 19 U/L (14-59); Albumin Level 4.2 g/dL (3.4-5.0); Alkaline Phosphatase 84 U/L (46-116); Anion Gap 9 mmol/L (4-12); Aspartate Amino Transferase 12 U/L (15-37); Bilirubin,Total 0.6 mg/dL (0.00-1.00); Blood Urea Nitrogen 10 mg/dL (7-18); Calcium 9.4 mg/dL (8.5-10.1); Carbon Dioxide 29 mmol/L (21-32); Chloride 102 mmol/L (98-108); Estimated Glomerular Filt Rate > 60; Glucose 75 mg/dL (70-99); Osmolality Calculated 288 mOsm/kg (285-295); Potassium 4.5 mmol/L (3.5-5.1); Sodium 140 mmol/L (136-145); Thyroid Stimulating Hormone 1.65 uIU/mL (0.36-3.74); Total Protein 7.8 g/dL (6.4-8.2)
[2025-01-09 11:43] LABS: Insulin Level Total 9.1 uIU/mL
[2025-01-10 02:04] LABS: Cortisol Random 10.8 mcg/dL
[2025-01-12 04:09] LABS: Adrenocorticotropic Hormone 18 pg/mL (6-50)
== END 2025-01-04 13:36 | disposition home or self-care (01) ==
LOC: CHSLAB 13:40
PROVIDERS: PCP Physician Assistant
DX: R63.5 Abnormal weight gain (principal)
CPT/HCPCS: 36415; 80053; 82024; 82533; 83525; 84305; 84443

== ENCOUNTER 2025-01-08 12:24 | Outpatient (CLI) | payer OTHER, SELFPAY ==
--- OUTSIDE RECORDS SUMMARY | 2025-01-08 14:04 | XMS_ITS | Clinical Summary ---
Author Organization [facility] Address [address] [place] [address] Care Team Providers Care Yeast Maker Name Role Phone James Rankin Primary Care [...] Description 01/02/2025 Telephone Obstetrics and Gynecology Clinic [address] [place] [address] Outpatient Health 3rd Floor [address] [place] [address] Veronika Rob NP 01/02/2025 Telephone Obstetrics and Gynecology Clinic [address] [facility] 3rd Floor [address] [place] [address] Cyril Tafoya 12/29/[address] [address] Jamaal Baldwin MD 12/25/[address] [address] Jamaal Baldwin MD 12/22/2024 7:30 AM CDT - 12/22/2024 11:35 AM CDT Surgery [facility] Operating Room 1 [place] [address] Virginie Gaffney MD LAPAROSCOPIC EXCISION ENDOMETRIOSIS 12/22/2024 7:24 AM CDT Anesthesia Event [facility] Operating Room 1 [place] [address] Paul Matthew MD Richardson, Genea Michelle, NP 12/22/2024 5:01 AM CDT - 12/22/2024 3:16 PM CDT Hospital Encounter [facility] Operating Room 1 [place] [address] Virginie Gaffney MD Endometriosis; Chronic pelvic pain in female Discharge Disposition: Discharge to home or self care 12/15/2024 12:30 PM CDT Pre-Admission Testing [facility] for Preoperative Assessment and Planning [facility]) [address] [place] [id number] Preoperative testing (Primary Dx) 12/01/2024 Telephone [facility] Minimally Invasive Surgery [address] [facility] Outpatient [facility] 7th Floor [address] [place] [address] Amy Marlow Surgery Auth Follow-up 11/15/2024 Telephone Obstetrics and Gynecology Clinic [address] [facility] 3rd Floor [address] [place] [address] Cyril Tafoya 10/10/[address] 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 Gender Identity Not on file Sexual Orientation [...] CDT Endometriosis Chronic pelvic pain in female ID AN PROCEDURE PLACEHOLDER Routine 12/22/2024 7:58 AM CDT ID AN PROCEDURE PLACEHOLDER Routine 12/22/2024 7:55 AM CDT ID AN ELECTIVE ENDOTRACHEAL AIRWAY Routine 12/22/2024 7:55 [...] non-tumor) 12/22/2024 10:37 AM CDT Narrative PATHOLOGY [facility] - 12/27/2024 12:02 PM CDT EPIC results best viewed via link to PDF [facility] Pallavi Ayala [facility] [place] [address] Note to Patients: This report may contain [...] Gender: F : 2005 (Age: 19) Address: [address] [place] [address] Hospital #: [id number] Taken:12/22/2024 Received:12/22/2024 Reported: 12/27/2024 Patient Type: [facility] Service: Surgery Location: [facility] OR POD1 Physician(s): LA Keating MD Kali [...] larger pieces of tissue are serially sectioned. Chuck Tender sections are submitted in cassette A1. Jar 1. B. Labeled left ovarian cyst , are two pieces of disrupted tissue (2.5 x 1.6 x 1.0 and 8.5 x 3.0 x 0.2 cm). The outer surface is purple-godoy and glistening with cautery and fraying. The inner surface is cooper and wrinkled with dark brown material. The pieces of tissue are serially sectioned with sales representative gas service sections submitted in cassette B1. Jar 1. [...] thickness is uniform in size (0.1 cm). Chuck Tender sections are submitted in cassette G1 (proximal [...] Surgical Pathology and Flow Cytometry Departments at [facility] as part of an ongoing quality project manager program and in compliance with federally mandated [...] Surgical Pathology and Flow Cytometry Departments of [facility]. It has not been cleared or approved by the U. S. Food and Drug Administration. IMAGES AND SCANNED DOCUMENTS, IF INCLUDED, ONLY VIEWABLE IN PDF VERSION OF REPORT us Virginie Gaffney MD LAB PATHOLOGY ORDERAB LES Final Result PATHOLOGY [facility] 3rd Floor [place], [place] [phone] * ID AN PROCEDURE PLACEHOLDER (12/22/2024 7:58 AM CDT) [...] MD ANESTHESIA ORDERABLES Amy l Result * ID AN ELECTIVE ENDOTRACHEAL AIRWAY, ID AN PROCEDURE PLACEHOLDER (12/22/2024 7:55 AM CDT) [...] HCG, ur, POC Negative Negative Lot Number [id number] QC Backgroud Clear Acceptable QC Control Line Acceptable Urine 12/22/2024 6:30 AM CDT Paul Matthew MD POINT OF CARE TEST ORDERAB LES Final Result * eGFR (12/15/2024 1:21 PM CDT) Pathologist [facility] eGFR >90 >=60 mL/min/1. 73 m2 Comment: [...] CDT 12/15/2024 2:10 PM CDT Pallavi Bales RESTAURANT GREETER LAB BLOOD ORDERABLES Final Result Performing Organization Address [facility]/ZIP Co de Phone Number [facility] [place] [address] * (ABNORMAL) CBC without differential (12/15/2024 1:21 PM CDT) Pathologist [facility] WBC 6.9 3.8 - 9.9 K/cumm Hgb 14.2 11.9 - 15.5 g/dL [facility] Hct 43.1 35.6 - 45.5 % [facility] Plt 352 150 - 400 K/cumm [facility] MPV 8.7(L) 9.1 - 12.3 fL [facility] RBC 4.96 3.90 - 5.20 M/cumm [facility] MCV 86.9 81.3 - 96.4 fL [facility] MCH 28.6 27.1 - 33.3 pg [facility] MCHC 32.9 32.3 - 35.7 g/dL [facility] RDW CV 13.8 11.1 - 14.9 % [facility] RDW SD 43.8 35.7 - 48.1 fL [facility] NRBC abs 0.00 0.00 - 0.01 K/cumm [facility] Blood 12/15/2024 1:21 PM CDT 12/15/2024 2:27 PM CDT Pallavi Bales RESTAURANT GREETER LAB BLOOD ORDERABLES Final Result [facility] [place] [address] * Comprehensive metabolic panel (12/15/2024 1:21 PM CDT) Pathologist [facility] Sodium 138 135 - 145 mmol/L Potassium, pl 4.1 3.3 - 4.9 mmol/L [facility] Chloride 104 97 - 110 mmol/L [facility] CO2 27 22 - 32 mmol/L [facility] Anion gap 7 2 - 15 mmol/L [facility] BUN 11 6 - 25 mg/dL [facility] Creatinine 0.86 0.60 - 1.10 mg/dL [facility] Glucose 75 70 - 199 mg/dL [facility] Comment: Interpretive Data Fasting glucose >/= 126 [...] 2022. Calcium 9.8 8.5 - 10.3 mg/dL [facility] Bilirubin, total 0.5 0.1 - 1.2 mg/dL [facility] Protein, pl 7.8 6.5 - 8.5 g/dL [facility] Albumin 4.8 3.5 - 5.0 g/dL [facility] Alk phos 60 40 - 130 Units/L [facility] ALT 12 7 - 45 Units/L [facility] AST 18 10 - 45 Units/L [facility] Blood 12/15/2024 1:21 PM CDT 12/15/2024 2:10 PM CDT us Pallavi Bales NP LAB BLOOD ORDERABLES Final Result [facility] Department [place] [address] from Last 3 Months Insurance [facility] Care Teams Yeast Maker Relationship Specialty Start Date End Date James Rankin PA [address] [place] [address] PCP - General Physician Human Service Coordinator 12/12/24
--- OUTSIDE RECORDS SUMMARY | 2025-01-08 14:04 | XMS_ITS | Referral Summary ---
Author Organization [facility] Address [address] [place] [address] Care Team Providers Care Tricot Knitter Name Role Phone James Rankin Primary Care Provider Encounters Date Type Department Care Team Description 01/02/2025 Telephone [facility] [address] [place] [address] Outpatient Health 3rd Floor [address] [place] [address] Veronika Rob NP 01/02/2025 Telephone [facility]etrics [facility] Gyne[facility] Clinic [address] [facility] ([place], [place]) Outpatient [facility] 3rd Floor [address] [place] [phone] Cyril Tafoya 12/29/[address] [phone] Jamaal Baldwin MD 12/25/[address] [phone] Jamaal Baldwin MD 12/22/2024 7:30 AM CDT - 12/22/2024 11:35 AM CDT Surgery [facility] Operating Room [address] [place] [phone] Virginie Gaffney MD LAPAROSCOPIC EXCISION ENDOMETRIOSIS 12/22/2024 7:24 AM CDT Anesthesia Event [facility] Operating Room [address] [place] [phone] Paul Matthew MD Richardson, Genea Michelle, NP 12/22/2024 5:01 AM CDT - 12/22/2024 3:16 PM CDT Hospital Encounter [facility] Operating Room [address] [place] [address] Virginie Gaffney MD Endometriosis; Chronic pelvic pain in female Discharge Disposition: Discharge to home or self care 12/15/2024 12:30 PM CDT Pre-Admission Testing [facility] for Preoperative Assessment and Planning [facility] [address] [place] [address] Preoperative testing (Primary Dx) 12/01[facility] [address] [facility] 7th Floor [address] [place] [phone] Amy Marlow Surgery Auth Follow-up 11/15/2024 Telephone [facility] [address] [place] [address] 3rd Floor [address] [place] [phone] Cyril Tafoya 10/10/[address] [address] Rocio Padilla MD from Last 3 Months [...] on file 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 Gender Identity Not on file Sexual Orientation [...] CDT Endometriosis Chronic pelvic pain in female [facility] AN PROCEDURE PLACEHOLDER Routine 12/22/2024 7:58 AM CDT [facility] AN PROCEDURE PLACEHOLDER Routine 12/22/2024 7:55 AM CDT VA AN ELECTIVE ENDOTRACHEAL AIRWAY Routine 12/22/2024 7:55 [...] non-tumor) 12/22/2024 10:37 AM CDT Narrative PATHOLOGY [facility] - 12/27/2024 12:02 PM CDT EPIC results best viewed via link to PDF [facility] Pallavi Ayala [facility] [place] [address] Note to Patients: This report may contain [...] Gender: F : 2005 (Age: 19) Address: [address] [place] [address] Hospital #: [id number] Taken:12/22/2024 Received:12/22/2024 Reported: 12/27/2024 Patient Type: [facility] Service: Surgery Location: [facility] OR [facility] Physician(s): LA Keating MD Kali M. [...] larger pieces of tissue are serially sectioned. Police Officer sections are submitted in cassette A1. Jar 1. B. Labeled left ovarian cyst , are two pieces of disrupted tissue (2.5 x 1.6 x 1.0 and 8.5 x 3.0 x 0.2 cm). The outer surface is purple-godoy and glistening with cautery and fraying. The inner surface is cooper and wrinkled with dark brown material. The pieces of tissue are serially sectioned with lead generation representative sections submitted in cassette B1. Jar [...] thickness is uniform in size (0.1 cm). Police Officer sections are submitted in cassette G1 [...] Surgical Pathology and Flow Cytometry Departments at [facility] as part of an ongoing coding quality coordinator program and in compliance with federally mandated [...] Surgical Pathology and Flow Cytometry Departments of [facility]. It has not been cleared or approved by the U. S. Food and Drug Administration. IMAGES AND SCANNED DOCUMENTS, IF INCLUDED, ONLY VIEWABLE IN PDF VERSION OF REPORT us Virginie Gaffney MD LAB PATHOLOGY ORDERAB LES Final Result PATHOLOGY [facility] 3rd Floor [place], [place] [phone] * [facility] AN PROCEDURE PLACEHOLDER (12/22/2024 7:58 AM CDT) [...] MD ANESTHESIA ORDERABLES Amy l Result * [facility] AN ELECTIVE ENDOTRACHEAL AIRWAY, [facility] AN PROCEDURE PLACEHOLDER (12/22/2024 7:55 AM CDT) [...] Acceptable Urine 12/22/2024 7:19 AM CDT Result [facility] Virginie Gaffney MD POINT OF CARE TEST OR DERABLES Final Result * POCT hCG, urine (12/22/2024 6:30 AM CDT) HCG, ur, POC Negative Negative Lot Number [id number] QC Backgroud Clear Acceptable QC Control Line Acceptable Urine 12/22/2024 6:30 AM CDT Result [facility] Paul Matthew MD POINT OF CARE TEST ORDERAB LES Final Result * eGFR (12/15/2024 1:21 PM CDT) Pathologist [facility] eGFR >90 >=60 mL/min/1. 73 m2 Comment: [...] CDT 12/15/2024 2:10 PM CDT Pallavi Bales DIECAST MACHINE OPERATOR LAB BLOOD ORDERABLES Final Result [facility] Department [place] [address] * (ABNORMAL) CBC without differential (12/15/2024 1:21 PM CDT) WBC 6.9 3.8 - 9.9 K/cumm Hgb 14.2 11.9 - 15.5 g/dL [facility] Hct 43.1 35.6 - 45.5 % [facility] Plt 352 150 - 400 K/cumm [facility] MPV 8.7(L) 9.1 - 12.3 fL [facility] RBC 4.96 3.90 - 5.20 M/cumm [facility] MCV 86.9 81.3 - 96.4 fL [facility] MCH 28.6 27.1 - 33.3 pg [facility] MCHC 32.9 32.3 - 35.7 g/dL [facility] RDW CV 13.8 11.1 - 14.9 % [facility] RDW SD 43.8 35.7 - 48.1 fL [facility] NRBC abs 0.00 0.00 - 0.01 K/cumm [facility] Blood 12/15/2024 1:21 PM CDT 12/15/2024 2:27 PM CDT Pallavi Bales NP LAB BLOOD ORDERABLES Final Result [facility] Department [place] [address] * Comprehensive metabolic panel (12/15/2024 1:21 PM CDT) Sodium 138 135 - 145 mmol/L Potassium, pl 4.1 3.3 - 4.9 mmol/L [facility] Chloride 104 97 - 110 mmol/L [facility] CO2 27 22 - 32 mmol/L [facility] Anion gap 7 2 - 15 mmol/L [facility] BUN 11 6 - 25 mg/dL [facility] Creatinine 0.86 0.60 - 1.10 mg/dL [facility] Glucose 75 70 - 199 mg/dL [facility] Comment: Interpretive Data Fasting glucose >/= [...] Calcium 9.8 8.5 - 10.3 mg/dL [facility] Bilirubin, total 0.5 0.1 - 1.2 mg/dL [facility] Protein, pl 7.8 6.5 - 8.5 g/dL [facility] Albumin 4.8 3.5 - 5.0 g/dL [facility] Alk phos 60 40 - 130 Units/L [facility] ALT 12 7 - 45 Units/L [facility] AST 18 10 - 45 Units/L [facility] Blood 12/15/2024 1:21 PM CDT 12/15/2024 2:10 PM CDT us Pallavi Bales NP LAB BLOOD ORDERABLES Final Result [facility] Department [place] [address] from Last 3 Months Insurance [facility] [address] Care Teams Tricot Knitter Relationship Specialty Start Date End Date James Rankin PA [address] [place] [address] PCP - General Physician General Maintenance Engineer 12/12/24
[2025-01-10 03:08] LABS: Cortisol Random 0.6 mcg/dL
== END 2025-01-08 12:25 | disposition home or self-care (01) ==
LOC: CHSLAB 12:29
PROVIDERS: PCP Physician Assistant
DX: R63.5 Abnormal weight gain (principal)
CPT/HCPCS: 36415; 82533